=== PATIENT | female | born 1950 | race Two or more races ===

== ENCOUNTER 2017-06-05 06:59 | Inpatient (IN) | payer MEDICARE ==
[~2017-06-05] VITALS: Ht 154.9 cm; Wt 61.0 kg
[2017-06-05] MEDS ORDERED: ASPIRIN 81 MG TABLET CHEW PO ONE (08:00)
[2017-06-05] MEDS ORDERED: SODIUM CHLORIDE FLUSH 10ML SYR IVF ONE ×2 (08:00→09:30)
[2017-06-05] MEDS ORDERED: SODIUM CHLORIDE 0.9% 1,000ML IVBOLUS ONE (08:00)
[2017-06-05 08:23] LABS: BLOOD UREA NITROGEN 15 mg/dL (7-18); HEMOGLOBIN 11.4 g/dL (11.7-16.4); WHITE BLOOD COUNT 6.6 x10^3/uL (3.4-10)
[2017-06-05] MEDS ORDERED: ASPIRIN 81 MG TABLET CHEW ONE (08:24)
[2017-06-05 08:29] LABS: IS PT STATUS REG ER OR PRE ER? YES
[2017-06-05] MEDS ORDERED: TRAM100T2 PO (10:37)
[2017-06-05] MEDS ORDERED: KETOROLAC 30 MG/1 ML IV PRN (11:00)
[2017-06-05] MEDS ORDERED: ONDANSETRON 2MG/ML, 2ML IVPush PRN (11:00)
[2017-06-05] MEDS ORDERED: DOCUSATE 100 MG CAPSULE PO PRN (11:00)
[2017-06-05] MEDS ORDERED: ACETAMINOPHEN 325 MG TABLET PO PRN (11:00)
[2017-06-05 11:13] VITALS: BP 156/84
[2017-06-05] MEDS ORDERED: PNEUMOCOCCAL 23 VACCINE IM-VACC ONE (14:00)
[2017-06-05 14:20] VITALS: BP 117/72
[2017-06-05 14:27] LABS: IS PT STATUS REG ER OR PRE ER? NO
[2017-06-05 16:20] VITALS: BP 133/80
[2017-06-05 20:42] VITALS: BP 93/73
[2017-06-05] MEDS: HEPARIN 5,000 UNITS/ML, 1ML SQ SCH (20:52)
[2017-06-05] MEDS: SODIUM CHLORIDE FLUSH 10ML SYR IVF SCH (20:52)
[2017-06-05 21:10] LABS: IS PT STATUS REG ER OR PRE ER? NO
[2017-06-06] MEDS: HEPARIN 5,000 UNITS/ML, 1ML SQ SCH ×2 (05:30→13:00)
[2017-06-06] MEDS: SODIUM CHLORIDE FLUSH 10ML SYR IVF SCH (07:45)
[2017-06-06] MEDS ORDERED: REGADENOSON 0.4 MG/5 ML SYRINGE ONE (08:29)
[2017-06-06 13:35] VITALS: BP 130/78
== END 2017-06-06 10:55 | disposition home or self-care (01) | DRG 313 ==
LOC: ED 07:01 → SUATTDRO 10:42 → EDIP 10:43 → 5SO 11:13
PROVIDERS: ADMIT Hospitalist; ATTEND Hospitalist
DX: R07.89 Other chest pain (principal); G89.29 Other chronic pain; K44.9 Diaphragmatic hernia without obstruction or gangrene; M54.9 Dorsalgia, unspecified; Z88.6 Allergy status to analgesic agent
CPT/HCPCS: 36415; 70450; 71020; 78452; 80048; 82040; 84484; 85025; 90732; 93005; 93017; 96360; 96361; J1644; J2785; A9502; C9898; J7030

== ENCOUNTER → 2017-08-01 | Outpatient (CLI) | payer MEDICARE ==
[~2017-08-01] MED LIST: TRAM100T2 PO
== END | disposition home or self-care (01) ==
LOC: RAD 09:26
PROVIDERS: ATTEND Neurological Surgery
DX: M47.896 Other spondylosis, lumbar region (principal); M51.26 Other intervertebral disc displacement, lumbar region; D18.09 Hemangioma of other sites; Z98.890 Other specified postprocedural states
CPT/HCPCS: 72148